=== PATIENT | male | born 1985 | race Caucasian/White ===

== ENCOUNTER → 2020-07-05 | Outpatient (CLI) | payer OTHER ==
--- NOTE | 2020-07-05 07:54 | US ---
EXAMINATION TYPE: US abdomen complete DATE OF EXAM: 07/05/2020 COMPARISON: NONE CLINICAL HISTORY: R10.11 Right upper quadrant pain. Pt states RUQ pain, more when lying down EXAM MEASUREMENTS: Liver Length: 16.0 cm Gallbladder Wall: 0.2 cm CBD: 0.4 cm Spleen: 10.8 cm Right Kidney: 10.6 x 4.9 x 4.6 cm Left Kidney: 10.2 x 6.0 x 5.3 cm Pancreas: Obscured by bowel gas Liver: Visualized portions appeared wnl Gallbladder: Multiple gallstones, difficult to visualize if mobile or not Evidence for sonographic Wong's sign: No CBD: wnl Spleen: wnl Right Kidney: wnl, lower pole gassed out Left Kidney: wnl, lower pole gassed out Upper IVC: wnl Abd Aorta: wnl The liver is homogenous. The intrahepatic portion of the IVC and visualized abdominal aorta are with in normal limits. Gallbladder shows several mobile shadowing intraluminal gallstones. No suspicious w all thickening or surrounding fluid. Common bile duct is unremarkable. The visualized portions of t he pancreas are homogenous. The spleen is unremarkable. Kidneys are symmetric and free of hydroneph rosis. No renal lesions are seen on images saved. IMPRESSION: Gallstones without secondary ultrasound evidence for acute cholecystitis. Consider HIDA s can evaluation based on degree of clinical suspicion in patient with right upper quadrant pain.
== END | disposition home or self-care (01) ==
LOC: RADUSWWP 07:06
PROVIDERS: ATTEND Internal Medicine
DX: K80.20 Calculus of gallbladder without cholecystitis without obstruction (principal)
CPT/HCPCS: 76700

== ENCOUNTER → 2024-10-30 | Outpatient (CLI) | payer OTHER ==
[2024-10-30 15:22] VITALS: BP 140/95; PULSE 94; RESP 16; TEMP 98.2
--- NOTE | 2024-10-30 15:48 | P.SLEEP ---
History of Present Illness DATE: 10/30/2024 CONSULTATION/NEW PATIENT EVALUATION HISTORY OF PRESENT ILLNESS/SLEEP-WAKE EVALUATION: 39-year-old gentleman had been evaluated in the sleep center for possible obstructive sleep apnea hypopnea syndrome. SLEEP SCHEDULE: Usually sleep schedule from 1011 PM to 7 AM on working days and from 1112 until 8 AM on weekend. FALLING ASLEEP: Sometimes patient has difficulties with falling asleep, has TV set in bedroom. DURING SLEEP: Patient has loud snoring, witnessed episodes of stop breathing during the sleep. Patient sleeps on the back and side position with awakenings from sleep and episodes of grinding teeth, dry mouth, heartburn. No history of hypnogogical hallucinations, sleep paralysis, or cataplexy. DURING THE DAY/WAKE STATE: In the morning patient wake up tired, has difficulties to pay attention, has problems with memory, concentration. [place] sleepiness scale is increased to 10. Patient may take 1 nap at 4:30 PM. PAST MEDICAL HISTORY: Acid reflux. PAST SURGICAL HISTORY: Cholecystectomy. MEDICATIONS: None at the present time. SOCIAL HISTORY: Please see below. FAMILY HISTORY: Please see below. REVIEW OF SYSTEMS: Loud snoring, sleepiness during the day. No fevers. No double vision. No recent chest pain. No shortness of breath. No abdominal pain. No bleeding episodes. No blood in urine. No seizure episodes. PHYSICAL EXAMINATION: GENERAL: A pleasant patient without any distress. VITAL SIGNS: Please see below, weight 258 pounds, BMI 35.6. HEENT: PERRLA, EOMI. Evaluation of oropharynx showed tongue protrudes midline, low position of soft palate Mallampati 3. NECK: Supple. No JVD. Thyroid is not palpable. 18 inches in circumference. LUNGS: Clear to percussion and to auscultation. Good air exchange. No wheezing or rhonchi. HEART: S1, S2 regular. No murmurs, gallops or rubs. ABDOMEN: Soft and nontender. Bowel sounds are present. No organomegaly appreciated. EXTREMITIES: No clubbing or cyanosis. DEPUTY DIRECTOR OF PUBLIC WORKS: Awake, alert, and oriented x3. Cranial nerves 2 to 7 intact. There is no fasciculation or atrophy noted. No focal deficits observed. ASSESSMENT: 1. Loud snoring, witnessed episodes of stop breathing during sleep, low position of soft palate Mallampati 3, wide neck 18 inches in circumference, sleepiness with Paris Sleepiness Scale 10. Obstructive sleep apnea hypopnea syndrome. 2. Obesity, BMI 35.6. 3. Acid reflux. 4. Status post cholecystectomy. PLAN: 1. Home sleep apnea test for evaluation of patient's breathing during sleep. 2. Following plan after reading sleep study 3. Preferable position during sleep on the side. 4. No driving if patient feels any sleepiness. Patient is aware of civil and criminal liability for unsafe driving. 5. Sleep hygiene with regular sleep time for at least 7.5-8 hours. 6. Watching and losing weight. Thank you very much for referring this patient for consultation. Sincerely, Aubrey Mccartney MD, PhD, FAASM. Diplomat of [place] [employer], Sleep Medicine Board by [place] [employer] [place] [employer] Continuous [employer] [facility] [place] cc Favian Menard MD, Harvey Lloyd PA-C Past Medical History Past Medical History: GERD/Reflux, Liver Disease Additional Past Medical History / Comment(s): fatty Liver History of Any Multi-Drug Resistant Organisms: None Reported Past Surgical History: Cholecystectomy Past Anesthesia/Blood Transfusion Reactions: No Reported Reaction Past Psychological History: No Psychological Hx Reported Smoking Status: Former smoker Past Alcohol Use History: Occasional Past Drug Use History: Cocaine, Heroin, Marijuana, Opiates 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 - Past Family History Father Family Medical History: CVA/TIA Additional Family Medical History / Comment(s): snoring Mother Family Medical History: Pneumonia Additional Family Medical History / Comment(s): Bronchitis, sinus headaches Sister(s) Family Medical History: Coronary Artery Disease (CAD) Brother(s) Family Medical History: Coronary Artery Disease (CAD) Physical Exam Vitals: Vital Signs Temp Pulse Resp BP Pulse Ox 10/30/24 15:22 98.2 F 94 16 140/95 95 Intake and Output 10/30/24 10/30/24 10/30/24 06:59 14:59 22:59 Other: Weight 117.027 kg Sleep Note - Sleep Data ESS Total: 10 - Sleep Note Sleep Note: Temperature: 98.2 F Pulse Rate: 94 Respiratory Rate: 16 Blood Pressure: 140/95 SpO2: 95 Height: 5 ft 11 in Weight: 117.027 kg BMI: Neck Circumference: 18
== END ==
LOC: 3 N SLEEP 15:02
PROVIDERS: ATTEND Internal Medicine
DX: G47.33 Obstructive sleep apnea (adult) (pediatric) (principal); K21.9 Gastro-esophageal reflux disease without esophagitis; E66.9 Obesity, unspecified; Z68.35 Body mass index [BMI] 35.0-35.9, adult; Z90.49 Acquired absence of other specified parts of digestive tract
CPT/HCPCS: 99202

== ENCOUNTER → 2024-11-19 | Outpatient (CLI) | payer OTHER ==
--- NOTE | 2024-11-26 12:15 | P.PCN ---
Description of Procedure: CLINICAL: A home sleep apnea test has been done for confirmation of possible obstructive sleep apnea-hypopnea syndrome. DESCRIPTION OF PROCEDURE: RESULTS: Recording time was 6 hours 16 minutes. Evaluation time was 5 hours 56 minutes. Evaluation time is sufficient for making conclusion about results of the test. Raw data of sleep recording has been reviewed and is adequate. Respiratory channel showed 4 apneas and 103 hypopneas. Apnea-hypopnea index was 18.0 per hour. Pulse rate in the range between minimum 51, maximum 157, average 77 by computer calculation. Lowest desaturation was 79%. IMPRESSION: 1. Moderate Obstructive Sleep Apnea Hypopnea Syndrome. Please see other impressions from consultation. PLAN: 1. The patient will be started on auto-PAP treatment for correction of respiratory abnormallities during sleep. 2. I will see patient for follow up visit to discuss results of the test, evaluate clinical response on treatment with PAP therapy and make any necessary adjustments related to mask fitting, pressure, and humidification. 3. Watching and losing weight. 4. Sleep hygiene with regular time in bed for at least 8 hours. 5. No driving if feeling any sleepiness. Thank you very much for allowing me to participate in the management of your patient. Sincerely, Aubrey Mccartney MD, PhD, FAASM Diplomat of [place] [employer] Sleep Medicine Board of [place] [employer] Receptionist Nurse [facility] [place] cc: Favian Menard MD, Harvey Lloyd PA-C
== END ==
LOC: 3 N SLEEP 17:03
PROVIDERS: ATTEND Internal Medicine
DX: G47.33 Obstructive sleep apnea (adult) (pediatric) (principal)